=== PATIENT | female | born 1980 | race Caucasian/White ===

== ENCOUNTER 2017-11-22 19:50 | Observation (INO) | payer OTHER ==
[~2017-11-22] VITALS: Ht 165.1 cm; Wt 76.2 kg
[~2017-11-22 19:50] MED LIST: FOLI1TAB15 PO; [UNRECOGNIZED DRUG - CODE]
[2017-11-22] MEDS ORDERED: BETAMETHASONE SOLUSPAN 6 MG/ML 5 ML VIAL IM ONE (20:45)
[2017-11-22] MEDS ORDERED: NIFEdipine 10 MG CAPSULE PO ONE (20:45)
[2017-11-22] MEDS ORDERED: RINGERS SOLUTION,LACTATED 1,000 ML IV ONE (20:45)
[2017-11-22] MEDS: RINGERS SOLUTION,LACTATED 1,000 ML IV SCH (21:32)
[2017-11-23] MEDS: RINGERS SOLUTION,LACTATED 1,000 ML IV SCH (06:37)
[2017-11-23] MEDS ORDERED: BETAMETHASONE SOLUSPAN 6 MG/ML 5 ML VIAL IM ONE (09:35)
== END 2017-11-23 10:20 | disposition home or self-care (01) ==
LOC: 4S 19:50
PROVIDERS: ADMIT Obstetrics & Gynecology; ATTEND Obstetrics & Gynecology
DX: O62.9 Abnormality of forces of labor, unspecified (principal); O09.523 Supervision of elderly multigravida, third trimester; Z3A.35 35 weeks gestation of pregnancy
CPT/HCPCS: 59025 ×2; 96360; 96361 ×2; 96372 ×2; G0378 ×2; J0702 ×2; J7120 ×2

== ENCOUNTER 2017-12-11 19:57 | Inpatient (IN) | payer OTHER ==
[~2017-12-11] VITALS: Ht 165.1 cm; Wt 74.8 kg
[2017-12-11 20:15] VITALS: BP 112/64
[2017-12-11] MEDS ORDERED: OXYTOCIN 20 UNITS/LACT RINGERS 1,000 ML IV ONE (20:48)
[2017-12-11] MEDS: RINGERS SOLUTION,LACTATED 1,000 ML IV SCH (20:48)
[2017-12-11] MEDS ORDERED: RINGERS SOLUTION,LACTATED 1,000 ML IV PRN (20:48)
[2017-12-11] MEDS ORDERED: CITRIC ACID/SODIUM CITRATE 30 ML SOLUTION UDCUP PO PRN (21:00)
[2017-12-11] MEDS ORDERED: METOCLOPRAMIDE HCL 5 MG/ML 2 ML VIAL IVP PRN (21:00)
[2017-12-11] MEDS ORDERED: FentaNYL/BUPIV 0.125%/NS/PF 200 ML ED PRN (21:07)
[2017-12-11] MEDS ORDERED: DiphenhydrAMINE HCL 50 MG/ML VIAL IVP PRN (21:15)
[2017-12-11] MEDS ORDERED: INFLUENZA VIRUS VACCINE QVS 2017-18 (3YR+)/PF 60 MCG/0.5 ML SYRINGE IM ONE (21:15)
[2017-12-11] MEDS ORDERED: ONDANSETRON HCL 4 MG/2 ML VIAL IVP PRN (21:15)
[2017-12-11] MEDS ORDERED: NALBUPHINE HCL 10 MG/ML VIAL IVP PRN (21:15)
[2017-12-11] MEDS ORDERED: PROMETHAZINE HCL 12.5 MG in SODIUM CHLORIDE 0.9% 50 ML IV PRN (21:15)
[2017-12-11 21:22] LABS: BASOPHILS % (AUTO) 0.4 % (0.0-2.0); EOSINOPHILS % (AUTO) 0.6 % (1.0-6.0); HEMATOCRIT 33.4 % (36-46); HEMOGLOBIN 11.6 g/dL (12.0-16.0); LYMPHOCYTES # (AUTO) 1.9 K/uL (1.0-4.8); LYMPHOCYTES % (AUTO) 19.6 % (22.0-44.0); MEAN CORPUSCULAR HEMOGLOBIN 30.8 pg (26.0-34.0); MEAN CORPUSCULAR HGB CONC 34.6 G/dL (31.0-37.0); MEAN CORPUSCULAR VOLUME 89 fL (80-100); MONOCYTES # (AUTO) 0.5 K/uL (0.1-1.0); MONOCYTES % (AUTO) 5.4 % (2.0-9.0); NEUTROPHILS # (AUTO) 7.2 K/uL (1.8-7.7); PLATELET COUNT (AUTO)-OB 231 K/uL (150-450); RED BLOOD CELL COUNT(AUTO) 3.76 MIL/uL (4.00-5.20)
[2017-12-12] MEDS ORDERED: OXYTOCIN 30 UNITS/LACT RINGERS 500 ML IV PRN (04:42)
[2017-12-12] MEDS ORDERED: ROPIVACAINE HCL 0.2% 100 ML ED ONE (07:21)
[2017-12-12] MEDS ORDERED: LIDOCAINE HCL/PF 2% 5 ML VIAL ONE (07:21)
[2017-12-12] MEDS ORDERED: FentaNYL/BUPIV 0.125%/NS/PF 200 ML ED PRN (07:39)
[2017-12-12] MEDS ORDERED: NALBUPHINE HCL 10 MG/ML VIAL IVP PRN (07:45)
[2017-12-12] MEDS ORDERED: DiphenhydrAMINE HCL 50 MG/ML VIAL IVP PRN (07:45)
[2017-12-12] MEDS ORDERED: ONDANSETRON HCL 4 MG/2 ML VIAL IVP PRN (07:45)
[2017-12-12] MEDS ORDERED: PROMETHAZINE HCL 12.5 MG in SODIUM CHLORIDE 0.9% 50 ML IV PRN (07:45)
[2017-12-12] MEDS: RINGERS SOLUTION,LACTATED 1,000 ML IV SCH ×2 (08:00→12:57)
[2017-12-12] MEDS ORDERED: OXYGEN THERAPY IH SCH (08:00)
[2017-12-12] MEDS ORDERED: OXYTOCIN 30 UNITS/LACT RINGERS 500 ML IV ONE (10:41)
[2017-12-12] MEDS ORDERED: LANOLIN 7 GM OINTMENT TP PRN (10:45)
[2017-12-12] MEDS ORDERED: LIDOCAINE HCL/PF 1% 30 ML VIAL INJ PRN (10:45)
[2017-12-12] MEDS ORDERED: GLYCERIN/WITCH HAZEL LEAF 40 PADS JAR TP PRN (10:45)
[2017-12-12] MEDS ORDERED: BENZOCAINE 20%/MENTHOL 56 GM SPRAY CANISTER TP PRN (10:45)
[2017-12-12] MEDS ORDERED: OxyCODONE HCL/ACETAMINOPHEN 5-325 MG TABLET PO PRN ×2 (10:45)
[2017-12-12] MEDS ORDERED: FentaNYL CITRATE-PF 100 MCG/2 ML VIAL ONE (12:37)
[2017-12-12] MEDS: FentaNYL CITRATE-PF 100 MCG/2 ML VIAL IVP PRN ×2 (12:45→12:50)
[2017-12-12] MEDS: IBUPROFEN 800 MG TABLET PO PRN (13:00)
[2017-12-12] MEDS: MAGNESIUM HYDROXIDE SUSPENSION 30 ML UDCUP PO PRN (20:04)
[2017-12-13 06:20] LABS: BASOPHILS % (AUTO) 0.3 % (0.0-2.0); EOSINOPHILS % (AUTO) 0.6 % (1.0-6.0); HEMATOCRIT 29.9 % (36-46); HEMOGLOBIN 10.3 g/dL (12.0-16.0); LYMPHOCYTES # (AUTO) 1.9 K/uL (1.0-4.8); LYMPHOCYTES % (AUTO) 17.3 % (22.0-44.0); MEAN CORPUSCULAR HEMOGLOBIN 31.1 pg (26.0-34.0); MEAN CORPUSCULAR HGB CONC 34.5 G/dL (31.0-37.0); MEAN CORPUSCULAR VOLUME 90 fL (80-100); MONOCYTES # (AUTO) 0.7 K/uL (0.1-1.0); MONOCYTES % (AUTO) 6.2 % (2.0-9.0); NEUTROPHILS # (AUTO) 8.5 K/uL (1.8-7.7); NEUTROPHILS % (AUTO) 75.6 % (40.0-70.0); PLATELET COUNT (AUTO)-OB 190 K/uL (150-450); RED BLOOD CELL COUNT(AUTO) 3.32 MIL/uL (4.00-5.20); RED CELL DISTRIBUTION WIDTH 12.6 % (11.5-14.5)
[2017-12-13] MEDS: IBUPROFEN 800 MG TABLET PO PRN (08:24)
[2017-12-13] MEDS: MAGNESIUM HYDROXIDE SUSPENSION 30 ML UDCUP PO PRN (08:24)
[2017-12-13] MEDS ORDERED: IBUP-2070 PO (10:38)
[2017-12-13] MEDS ORDERED: FERR-89 PO (10:39)
[2017-12-13] MEDS ORDERED: DSS100 PO (10:39)
== END 2017-12-13 14:00 | disposition home or self-care (01) | DRG 775 ==
LOC: OBSVTOIN 19:57 → 4S 19:57
PROVIDERS: ADMIT Obstetrics & Gynecology; ATTEND Obstetrics & Gynecology
PROC: 3E0234Z Introduction of Serum, Toxoid and Vaccine into Muscle, Percutaneous Approach (ICD-10-PCS; principal; 2017-12-11)
PROC: 10E0XZZ Delivery of Products of Conception, External Approach (ICD-10-PCS; 2017-12-12)
PROC: 3E0R3BZ Introduction of Anesthetic Agent into Spinal Canal, Percutaneous Approach (ICD-10-PCS; 2017-12-12)
PROC: 00HU33Z Insertion of Infusion Device into Spinal Canal, Percutaneous Approach (ICD-10-PCS; 2017-12-12)
DX: O76 Abnormality in fetal heart rate and rhythm complicating labor and delivery (principal); Z23 Encounter for immunization; Z3A.38 38 weeks gestation of pregnancy; Z37.0 Single live birth
CPT/HCPCS: 86850; 86900; 86901; J2590; J2795; J3010; J3490; J7120